=== PATIENT | male | born 1990 | race African-American/Black ===

== ENCOUNTER 2022-08-21 14:07 | Emergency (ER) | payer MEDICAID ==
[~2022-08-21] VITALS: Ht 182.9 cm; Wt 86.0 kg
[2022-08-21 14:21] VITALS: O2SAT 97
[2022-08-21] MEDS ORDERED: IBUP-2029 MT (15:30)
[2022-08-21] MEDS ORDERED: IBUPROFEN 600MG TABLET PO ONE (15:45)
[2022-08-21 16:02] VITALS: BP 124/78; PULSE 86; RESP 19; TEMP 98.8
== END 2022-08-21 16:10 | disposition home or self-care (01) ==
LOC: EDSEX 14:07 → ER 14:07
DX: S90.32XA Contusion of left foot, initial encounter (principal); M79.672 Pain in left foot; Z00.00 Encounter for general adult medical examination without abnormal findings; Y04.0XXA Assault by unarmed brawl or fight, initial encounter; Y93.89 Activity, other specified; Y92.89 Other specified places as the place of occurrence of the external cause; Y99.8 Other external cause status
CPT/HCPCS: 73630; 99283; Z7610